=== PATIENT | female | born 1995 ===

== ENCOUNTER 2019-02-12 14:53 | Emergency (ER) | payer MEDICAID ==
[2019-02-12 14:54] VITALS: BMI 30.5
[2019-02-12 14:59] VITALS: BP 114/55; PULSE 64; RESP 16; TEMP 99.3; O2SAT 100
== END 2019-02-12 16:00 | disposition left against medical advice (07) ==
LOC: H.ER 14:53
DX: Z02.89 Encounter for other administrative examinations (principal)

== ENCOUNTER 2019-02-12 16:47 | Emergency (ER) | payer MEDICAID ==
[2019-02-12 16:47] VITALS: BMI 30.5
[2019-02-12 16:56] VITALS: O2SAT 98
--- NOTE | 2019-02-12 18:30 | ED PDOC ---
HPI: Headache Time Seen by Provider: 02/12/19 17:19 Chief Complaint (Nursing): Headache Chief Complaint (Provider): Headache History Per: Patient History/Exam Limitations: no limitations Onset/Duration Of Symptoms: Hrs Current Symptoms Are (Timing): Still Present Associated Symptoms: denies: Photophobia, Blurred Vision, Nausea, Vomiting, Extremity Weakness Additional Complaint(s): 24yo female with history of bipolar disorder, comes to ER for the 2nd time today, with complaints of headache. Patient previously came in with her mom after she was involved in a verbal altercation with her mother. During prior visit, mother and daughter had decided they did not want to be seen so had walked out of the ER. Currently, mom and daughter states no homicidal ideation, suicidal ideation or other thoughts of self harm. Patient states she came back to the ER because her mother will not let her in the home. She states she had no intention of hurting her mom when they got into an argument prior; she states she just wanted to scare her mother. Patient is compliant with her medications and currently [place] [facility] Agreeable to talk with social media developer and wants tylenol for headche. Past Medical History Reviewed: Historical Data, Nursing Documentation, Vital Signs Vital Signs: Last Vital Signs Temp 98.0 F 02/12/19 16:53 Pulse 69 02/12/19 16:53 Resp 16 02/12/19 16:53 BP 114/56 L 02/12/19 16:53 Pulse Ox 98 02/12/19 16:53 Primary Care Provider: Suze Keys - Medical History PMH: Anxiety, Asthma, Bipolar Disorder, Depression Denies: Diabetes (Patient denied.), Hepatitis (Patient denied.), HIV (Patient denied.), HTN (Patient denied.), Chronic Kidney Disease, Sexually Transmitted Disease (Patient denied.) Comment Only: Seizures (Patient denied.) - Surgical History Surgical History: Cholecystectomy, Pacemaker - Family History Family History: States: Unknown Family Hx - Social History Current smoker - smoking cessation education provided: No Alcohol: None Drugs: Denies - Immunization History Hx Tetanus Toxoid Vaccination: Yes Hx Influenza Vaccination: Yes Hx Pneumococcal Vaccination: Yes - Home Medications Home Medications: Ambulatory Orders Medication Instructions Recorded Acetaminophen [Tylenol 325mg tab] 2 tab PO Q6 #50 tab 03/05/17 Aspirin [Ecotrin] 81 mg PO DAILY 03/05/17 Ibuprofen [Motrin Tab] 400 mg PO Q8 #30 tab 03/05/17 Omeprazole 20 mg PO DAILY 03/05/17 Vitamin B12 1 tab PO DAILY 03/05/17 ARIPiprazole [Abilify] 2 mg PO HS 11/05/18 ARIPiprazole [Abilify] 5 mg PO DAILY 11/05/18 Atenolol [Tenormin] 25 mg PO DAILY 11/05/18 Oseltamivir Cap [Tamiflu] 75 mg PO BID #9 cap 11/06/18 - Allergies Allergies/Adverse Reactions: Allergies Allergy/AdvReac Type Severity Reaction Status Date / Time codeine Allergy RASH Verified 02/12/19 14:57 morphine Allergy RASH Verified 02/12/19 14:57 atarax Allergy Severe RASH Uncoded 02/12/19 14:57 valium AdvReac RASH Uncoded 02/12/19 14:57 Review of Systems ROS Statement: Except As Marked, All Systems Reviewed And Found Negative Constitutional: Negative for: Fever Eyes: Negative for: Vision Change Gastrointestinal: Negative for: Nausea Neurological: Positive for: Headache. Negative for: Weakness, Numbness, Dizziness Physical Exam - Reviewed Nursing Documentation Reviewed: Yes Vital Signs Reviewed: Yes - Physical Exam Appears: Positive for: Non-toxic, No Acute Distress Head Exam: Positive for: ATRAUMATIC, NORMAL INSPECTION, NORMOCEPHALIC Skin: Positive for: Normal Color Eye Exam: Positive for: Normal appearance, EOMI, PERRL Neck: Positive for: Supple Cardiovascular/Chest: Positive for: Regular Rate, Rhythm. Negative for: Tachycardia Respiratory: Positive for: Normal Breath Sounds. Negative for: Respiratory Distress Gastrointestinal/Abdominal: Positive for: Normal Exam Back: Positive for: Normal Inspection Extremity: Positive for: Normal ROM Neurological/Psych: Positive for: Awake, Alert - ECG O2 Sat by Pulse Oximetry: 98 (RA) Pulse Ox Interpretation: Normal Medical Decision Making Medical Decision Makinyo with Headache -- Tylenol 650mg PO -- Crisis evaluation Patient has good follow up [place] [facility] no need for medication refill Mother states she will take patient home after evaluation./ Scribe Attestation: Documented by Mansi Kraus acting as a scribe for Echo Boswell MD. Provider Scribe Attestation: All medical record entries made by the Scribe were at my direction and personally dictated by me. I have reviewed the chart and agree that the record accurately reflects my personal performance of the history, physical exam, medical decision making, and the department course for this patient. I have also personally directed, reviewed, and agree with the discharge instructions and disposition. Disposition - Clinical Impression Clinical Impression: Headache, Bipolar disorder - Disposition Disposition Time: 18:19 Condition: IMPROVED Additional Instructions: Follow up with Dr. Levin for psychiatric care. Take Tylenol or Motrin as needed for headache. Instructions: Headache, Adult (DC), Bipolar Disorder (DC) Forms: [employer] (Turkish)
[2019-02-12 19:44] VITALS: BP 122/70; PULSE 77; RESP 17; TEMP 97.8
== END 2019-02-12 18:30 | disposition home or self-care (01) ==
LOC: H.ER 16:47
DX: R51 Headache (principal); F31.9 Bipolar disorder, unspecified; Z95.0 Presence of cardiac pacemaker